=== PATIENT | male | born 1940 | race Caucasian/White ===

== ENCOUNTER 2019-12-17 10:35 | Day surgery (SDC) | payer MEDICARE ==
[2019-12-17] MEDS ORDERED: Bupivacaine 0.5% 50 ML MDV ONE (10:48)
[2019-12-17] MEDS ORDERED: Lidocaine 2% 20 ML MDV ONE (10:48)
[2019-12-17] MEDS ORDERED: Lactated Ringers 1,000 ML IV SCH (11:15)
[2019-12-17] MEDS ORDERED: ceFAZolin 2 GM in Premix Bag 1 BAG IV ONE (11:15)
[2019-12-17] MEDS ORDERED: Propofol 200 MG/20 ML SDV ONE (11:52)
[2019-12-17] MEDS ORDERED: fentaNYL 100 MCG/2 ML SDV ONE (11:53)
[2019-12-17] MEDS ORDERED: Midazolam 1 MG/ML 2 ML SDV ONE (11:53)
[2019-12-17 14:04] VITALS: BP 130/83; PULSE 65
--- NOTE | 2019-12-17 18:59 | OR ---
DATE OF PROCEDURE: 12/17/2019 SURGEON: Elio Huang DPM [employer] OPERATOR HELPER: None. PREOPERATIVE DIAGNOSIS: Mass, posterior left ankle. POSTOPERATIVE DIAGNOSIS: Mass, posterior left ankle. PROCEDURE: Excision of mass, posterior left ankle. ANESTHESIA: Local with IV sedation. HEMOSTASIS: Obtained with a thigh tourniquet on the left thigh at 250 mmHg. ESTIMATED BLOOD LOSS: 5 mL. MATERIALS: None. INJECTABLES: 10 mL of Marcaine 0.5% plain was injected around the operative site in a sheryl-type block prior to prep. PATHOLOGY: Mass sent. CONDITION: Stable. INDICATIONS FOR SURGERY: Painful mass on the posterior aspect of the left Achilles tendon that was unresponsive to conservative measures. PROCEDURE IN DETAIL: The patient was brought to the operating room, placed on the operating table in the prone position following IV sedation. Then the injection of 10 mL of Marcaine 0.5% plain was injected around the mass in the posterior aspect of the left Achilles tendon. The left leg was scrubbed prepped and draped in the usual aseptic manner and raised to 90 degrees for hemostasis and a tourniquet was inflated. Esmarch was not used. Incision was made in a semi-elliptical type incision on the posterior aspect of the left ankle superficial to the mass. The incision length was 9 cm. Incisions were deepened through subcutaneous tissues with care taken to identify and retract all vital neurovascular structures. The mass was carefully dissected out with sharp and blunt dissection and then was removed. The incision was examined. There were no signs of mass left and no purulence. No malodor. No signs of infection. There was healthy bleeding tissue. So the incision was flushed out with copious amounts of sterile saline and subcutaneous closure was done with 3- 0 Vicryl in a [id number] closure and then skin closure was done with 3-0 nylon in a horizontal mattress type closure. The incision was then dressed with Xeroform, 4x4s, Kerlix, and Grabiel. The patient was returned to recovery room with vital signs stable and vascular status intact to both feet. The patient was told to rest and elevate the left leg, keep pressure off the posterior aspect of the left ankle, and to do partial weightbearing only on the left leg and walk with a walker and a CAM boot. The patient to return to clinic for followup in [address] Huang, at which time, he will be re-evaluated. Elio Huang DPM /[id number]
== END 2019-12-17 14:27 | disposition home or self-care (01) ==
LOC: JP.SDS 10:35
PROVIDERS: ATTEND Podiatrist Foot & Ankle Surgery
DX: M79.89 Other specified soft tissue disorders (principal); L92.8 Other granulomatous disorders of the skin and subcutaneous tissue; E11.9 Type 2 diabetes mellitus without complications; I11.0 Hypertensive heart disease with heart failure; I50.42 Chronic combined systolic (congestive) and diastolic (congestive) heart failure; I25.10 Atherosclerotic heart disease of native coronary artery without angina pectoris; I48.0 Paroxysmal atrial fibrillation; I71.2 Thoracic aortic aneurysm, without rupture; E78.2 Mixed hyperlipidemia; Z79.899 Other long term (current) drug therapy; Z79.82 Long term (current) use of aspirin; Z79.84 Long term (current) use of oral hypoglycemic drugs; Z87.891 Personal history of nicotine dependence; Z95.1 Presence of aortocoronary bypass graft
CPT/HCPCS: 88305; J0690; J2001; J2250; J2704; J3010; J3490; J7120

== ENCOUNTER 2021-02-18 08:02 | Emergency (ER) | payer MEDICARE ==
[2021-02-18 08:15] VITALS: BP 158/81; PULSE 83
--- NOTE | 2021-02-18 08:44 | EDM.PDOC ---
ED HPI GENERAL MEDICAL PROBLEM - General Chief Complaint: Lower Extremity Injury/Pain Stated Complaint: FOOT PAIN Time Seen by Provider: 02/18/21 08:43 Source of Information: Reports: Patient History Limitations: Reports: No Limitations - History of Present Illness INITIAL COMMENTS - FREE TEXT/NARRATIVE: 80-year-old male felt chilled overnight, and when he woke up this morning he felt some pain in his left foot. He also had pain with weightbearing in the MP joint, took a closer look and realized he had erythema and warmth of the joint. He has a problem with chronic recurring foot cellulitis and gout, and had his right large toe removed within the past few years because of this problem. He has no other symptoms such as cough, abdominal pain, nausea or vomiting, rash or other reason for fever. The chills are gone this morning but the foot is still uncomfortable. Onset: Unknown/Unsure (Develop symptoms overnight) Location: Reports: Lower Extremity, Left Associated Symptoms: Reports: Fever/Chills Left Foot Pain Score (Numeric/FACES): 10 - Related Data Allergies Allergy/AdvReac Type Severity Reaction Status Date / Time No Known Allergies Allergy Verified 02/18/21 08:32 Home Meds: Home Meds Folic Acid 1 mg PO BID 07/04/16 [History] Methotrexate 17.5 mg PO WEEKLY 07/04/16 [History] allopurinoL [Zyloprim] 300 mg PO DAILY 07/04/16 [History] metFORMIN [Glucophage] 500 mg PO BID 07/04/16 [History] predniSONE [Prednisone] 2.5 mg PO DAILY 07/04/16 [History] atorvaSTATin Calcium [Atorvastatin Calcium] 20 mg PO BEDTIME 12/14/16 [History] Acetaminophen [Tylenol] 650 mg PO Q6H PRN 04/20/18 [History] Apixaban [Eliquis] 5 mg PO BID 04/20/18 [History] Aspirin 81 mg PO DAILY 04/20/18 [History] Cholecalciferol (Vitamin D3) [Vitamin D] 1,000 unit PO DAILY 04/20/18 [History] Ferrous Sulfate [Iron] 325 mg PO DAILY 04/20/18 [History] Lisinopril 10 mg PO BID 04/20/18 [History] Pantoprazole Sodium [Protonix] 40 mg PO DAILY 04/20/18 [History] carvediloL [Coreg] 12.5 tab PO BID 04/20/18 [History] Past Medical History HEENT History: Reports: Impaired Vision Other HEENT History: wears glasses Cardiovascular History: Reports: Bypass, Heart Murmur, High Cholesterol, Hypertension, Syncope Gastrointestinal History: Reports: GERD Genitourinary History: Reports: None Musculoskeletal History: Reports: Arthritis, Back Pain, Chronic, Gout Neurological History: Reports: CVA Endocrine/Metabolic History: Reports: Diabetes, Type II Oncologic (Cancer) History: Reports: Basal Cell Carcinoma - Infectious Disease History Infectious Disease History: Reports: Chicken Pox, Meningitis, Mumps, Rubella, Shingles - Past Surgical History HEENT Surgical History: Reports: Tonsillectomy Cardiovascular Surgical History: Reports: Other (See Below) Other Cardiovascular Surgeries/Procedures: bypass GI Surgical History: Reports: Colonoscopy Male Surgical History: Reports: Vasectomy Musculoskeletal Surgical History: Reports: Carpal Tunnel, Other (See Below) Other Musculoskeletal Surgeries/Procedures:: right great toe removed Social & Family History - Tobacco Use Tobacco Use Status *Q: Never Tobacco User - Caffeine Use Caffeine Use: Reports: Coffee - Recreational Drug Use Recreational Drug Use: No Review of Systems - Review of Systems Review Of Systems: See Below Constitutional: Reports: Fever, Other (Chills) Eyes: Reports: No Symptoms Respiratory: Reports: No Symptoms Cardiovascular: Reports: No Symptoms Genitourinary: Reports: No Symptoms Skin: Reports: Erythema (Erythema and warmth around the MP joint of the left foot) Neurological: Reports: Other (Some diabetic neuropathy chronic) Psychiatric: Reports: No Symptoms ED EXAM, GENERAL - Physical Exam Exam: See Below Exam Limited By: No Limitations General Appearance: Alert, No Apparent Distress Head: Atraumatic Respiratory/Chest: No Respiratory Distress Cardiovascular: Regular Rate, Rhythm Extremities: Other (Exam is otherwise limited to the left foot. He does have diffuse erythema around the MP joint, slight swelling, and significant discomfort with palpation or passive range of motion of the large toe) Neurological: Alert, Oriented Psychiatric: Normal Affect, Normal Mood Course - Vital Signs Last Recorded V/S: Last Vital Signs Temp 99.9 F 02/18/21 08:30 Pulse 83 02/18/21 08:30 Resp 16 02/18/21 08:30 BP 158/81 H 02/18/21 08:30 Pulse Ox 93 L 02/18/21 08:30 - Orders/Labs/Meds Meds: Medications Discontinued Medications Generic Name Dose Route Start Last Admin Trade Name Aracely PRN Reason Stop Dose Admin Ceftriaxone Sodium 1 gm/ 0 gm 02/18/21 09:30 02/18/21 09:11 Lidocaine HCl 2.1 ml IM 02/18/21 09:31 1 inj ONETIME ONE Administration - Re-Assessments/Exams Free Text/Narrative Re-Assessment/Exam: 02/18/21 08:57 This patient has inflammation of the MP joint of the large toe on the left foot, possibly a combination of infection with gout. I discussed his condition with Dr. Huang, his cleaning team member who knows him well and he recommended 1 g of Rocephin IM and to come to [place] for further evaluation. The patient and his were comfortable with this plan. Departure - Departure Time of Disposition: 09:16 Disposition: Home, Self-Care 01 Clinical Impression: Cellulitis of foot, left - Discharge Information Instructions: Cellulitis, Adult Referrals: Citlalli Ibarra MD [Primary Care Provider] - Forms: ED Department Discharge Care Plan Goals: Dr. Huang wants to see you early this afternoon in [place], please go to the [place] [facility] and they will work you in when you arrive. Sepsis Event Note (ED) - Evaluation Sepsis Screening Result: No Definite Risk - Focused Exam Vital Signs: Vital Signs Temp Pulse Resp BP Pulse Ox 02/18/21 08:30 99.9 F 83 16 158/81 H 93 L 02/18/21 08:14 99.9 F 83 16 158/81 H 93 L
[2021-02-18] MEDS ORDERED: cefTRIAXone 1 GM, Lidocaine 1% 2.1 ML IM ONE ×4 (08:54→09:30)
== END 2021-02-18 09:55 | disposition home or self-care (01) ==
LOC: JP.ED 08:02
DX: L03.116 Cellulitis of left lower limb (principal); E78.00 Pure hypercholesterolemia, unspecified; I10 Essential (primary) hypertension; K21.9 Gastro-esophageal reflux disease without esophagitis; M19.90 Unspecified osteoarthritis, unspecified site; E11.9 Type 2 diabetes mellitus without complications; Z79.84 Long term (current) use of oral hypoglycemic drugs; Z79.01 Long term (current) use of anticoagulants; Z79.899 Other long term (current) drug therapy; Z79.82 Long term (current) use of aspirin; Z86.73 Personal history of transient ischemic attack (TIA), and cerebral infarction without residual deficits
CPT/HCPCS: 96372; 99283; J0696

== ENCOUNTER 2022-09-17 18:05 | Emergency (ER) | payer MEDICARE ==
[2022-09-17 20:02] LABS: ESTIMATED GFR 60 mL/min (>60)
[2022-09-17] MEDS ORDERED: Sodium Chloride 0.9% 75 ML IV SCH (21:00)
[2022-09-17] MEDS ORDERED: Sodium Chloride 0.9% 1,000 ML IV SCH (21:00)
[2022-09-17] MEDS ORDERED: Iopamidol 612 MG/ML 100 ML Bottle IV SCH (21:00)
[2022-09-17 21:43] VITALS: BP 163/78; PULSE 59
[2022-09-17] MEDS ORDERED: Pantoprazole 40 MG Vial IVPUSH ONE (22:47)
== END 2022-09-17 23:20 | disposition home or self-care (01) ==
LOC: JP.ED 18:05
DX: K44.9 Diaphragmatic hernia without obstruction or gangrene (principal); K80.20 Calculus of gallbladder without cholecystitis without obstruction; E78.00 Pure hypercholesterolemia, unspecified; I10 Essential (primary) hypertension; E11.9 Type 2 diabetes mellitus without complications; Z79.899 Other long term (current) drug therapy; Z79.84 Long term (current) use of oral hypoglycemic drugs; Z79.01 Long term (current) use of anticoagulants; Z79.82 Long term (current) use of aspirin; Z86.73 Personal history of transient ischemic attack (TIA), and cerebral infarction without residual deficits
CPT/HCPCS: 36415; 74177; 80053; 81001; 85025; 86140; 96361; 96374; 99284; C9113; J3490; J7030; Q9967

== ENCOUNTER 2022-09-30 06:17 | Day surgery (SDC) | payer MEDICARE ==
[2022-09-30] MEDS ORDERED: Dextrose 5%-Lactated Ringers 1,000 ML IV SCH (06:45)
[2022-09-30] MEDS ORDERED: Propofol 200 MG/20 ML SDV ONE (07:09)
[2022-09-30] MEDS ORDERED: fentaNYL 50 MCG/ML SDV ONE (07:57)
[2022-09-30 10:13] VITALS: BP 106/53; PULSE 60
== END 2022-09-30 11:12 | disposition home or self-care (01) ==
LOC: JP.SDS 06:17
PROVIDERS: ATTEND Surgery
DX: K44.9 Diaphragmatic hernia without obstruction or gangrene (principal); K31.1 Adult hypertrophic pyloric stenosis; I11.0 Hypertensive heart disease with heart failure; I50.9 Heart failure, unspecified; E11.9 Type 2 diabetes mellitus without complications; I42.9 Cardiomyopathy, unspecified; I48.91 Unspecified atrial fibrillation; I25.10 Atherosclerotic heart disease of native coronary artery without angina pectoris; U07.1 COVID-19; Z95.1 Presence of aortocoronary bypass graft; Z79.899 Other long term (current) drug therapy; Z86.73 Personal history of transient ischemic attack (TIA), and cerebral infarction without residual deficits
CPT/HCPCS: J2704; J3010; J7121; U0002